=== PATIENT | male | born 1965 | race Caucasian/White ===

== ENCOUNTER → 2017-05-07 | Outpatient (CLI) | payer BC | END | disposition home or self-care (01) | LOC: GMAL 11:35 | PROVIDERS: ATTEND Family Medicine | DX: Z00.00 Encounter for general adult medical examination without abnormal findings (principal) ==

== ENCOUNTER → 2018-05-20 | Outpatient (CLI) | payer BC | LOC: GMAL 11:20 | PROVIDERS: ATTEND Family Medicine | DX: Z00.00 Encounter for general adult medical examination without abnormal findings (principal) ==

== ENCOUNTER → 2019-05-24 | Outpatient (CLI) | payer BC | LOC: GMAL 12:17 | PROVIDERS: ATTEND Family Medicine | DX: E03.4 Atrophy of thyroid (acquired) (principal); Z12.5 Encounter for screening for malignant neoplasm of prostate ==